=== PATIENT | male | born 1965 | race Caucasian/White ===

== ENCOUNTER 2016-12-10 14:31 | Emergency (ER) | payer BC, OTHER ==
[2016-12-10 15:29] LABS: BASO % 1.3 % (0-6); EOS % 1.7 % (0-6); GRAN % 48.8 % (47-80); HEMATOCRIT 40.4 % (42.0-52.0); HEMOGLOBIN 12.8 gm/dl (14.0-18.0); LYMPH % 38.9 % (16-45); MEAN CELL VOLUME 83.6 fl (81-97); MEAN CORPUSCULAR HEMOGLOBIN 26.5 pg (27-33); MEAN CORPUSCULAR HGB CONC 31.7 g/dl (32-36); MEAN PLATELET VOLUME 10.6 fl (7.4-10.4); MONO % 9.3 % (0-9); PLATELET COUNT 237 K/uL (130-400); RED BLOOD COUNT 4.83 M/uL (4.40-5.70); RED CELL DISTRIBUTION WIDTH 15.3 % (11.5-14.5); WHITE BLOOD COUNT W/O DIFF 4.6 K/uL (4.2-12.2)
--- NOTE | 2016-12-10 16:09 | Emergency Department Record ---
History of Present Illness - General Chief complaint: ENT Stated complaint: EAR PAIN Time Seen by Provider: 12/10/16 14:48 Source: Patient Mode of Arrival: Ambulatory Limitations: No limitations - History of Present Illness Initial comments: pt has had pain in his r ear and thought it was an earache. now it has spread to the mastoid and back of head. pt is having lancing pain in the back and side of head every few minutes. no other symptoms MD complaint: Ear pain Onset/Timin -: Week(s) Location: R ear Severity scale (1-10): 7 Quality: Sharp Consistency: Intermittent Improves with: None Worsens with: Other - Related Data Previous Rx's Medication Instructions Recorded Amoxicillin/Potassium Clav 1 tab PO BID #30 tab 12/10/16 [Augmentin 875-125 Tablet] Hydrocodone/Acetaminophen [Cicero 1 tab PO Q6H PRN #10 tab 12/10/16 5mg/325mg] Allergies Allergy/AdvReac Type Severity Reaction Status Date / Time No Known Drug Allergies Allergy Verified 12/10/16 14:41 Travel Screening - Travel/Exposure Within Last 30 Days Have you traveled within the last 30 days?: No Review of Systems Reviewed: No additional complaints except as noted below Constitutional: Reports: As per HPI. Denies: Chills, Fever, Malaise, Night sweats, Weakness, Weight change Eyes: Reports: As per HPI. Denies: Eye discharge, Eye pain, Photophobia, Vision change ENT: Reports: As per HPI. Denies: Congestion, Dental pain, Ear pain, Epistaxis , Hearing loss, Throat pain Respiratory: Reports: As per HPI. Denies: Cough, Dyspnea, Hemoptysis, Stridor, Wheezes Cardiovascular: Reports: As per HPI. Denies: Arrhythmia, Chest pain, Dyspnea on exertion, Edema, Murmurs, Orthopnea, Palpitations, Paroxysmal nocturnal dyspnea, Rheumatic Fever, Syncope Endocrine: Reports: As per HPI. Denies: Fatigue, Heat or cold intolerance, Polydipsia, Polyuria Gastrointestinal: Reports: As per HPI. Denies: Abdominal pain, Constipation, Diarrhea, Hematemesis, Hematochezia, Melena, Nausea, Vomiting Genitourinary: Reports: As per HPI. Denies: Dysuria, Frequency, Hematuria, Incontinence, Retention, Testicular pain, Testicular mass, Urgency Musculoskeletal: Reports: As per HPI. Denies: Arthralgia, Back pain, Gout, Joint swelling, Myalgia, Neck pain Skin: Reports: As per HPI. Denies: Bruising, Change in color, Change in hair/ nails, Lesions, Pruritus, Rash Neurological: Reports: As per HPI. Denies: Abnormal gait, Confusion, Headache, Numbness, Paresthesias, Seizure, Tingling, Tremors, Vertigo, Weakness Psychiatric: Reports: As per HPI. Denies: Anxiety, Auditory hallucinations, Depression, Homicidal thoughts, Suicidal thoughts, Visual hallucinations Hematological/Lymphatic: Reports: As per HPI. Denies: Anemia, Blood Clots, Easy bleeding, Easy bruising, Swollen glands Past Medical History - SOCIAL HISTORY Smoking Status: Never smoker Alcohol Use: None Drug Use: None - RESPIRATORY Hx Respiratory Disorders: No - CARDIOVASCULAR Hx Cardio Disorders: No - NEURO Hx Neuro Disorders: No - GI Hx GI Disorders: No - Hx Genitourinary Disorders: No - ENDOCRINE Hx Endocrine Disorders: No - MUSCULOSKELETAL Hx Musculoskeletal Disorders: No - PSYCH Hx Psych Problems: No - HEMATOLOGY/ONCOLOGY Hx Hematology/Oncology Disorders: No Family Medical History Any Significant Family History?: No Physical Exam - General General Appearance: Alert, Oriented x3, Cooperative, Mild distress - Head Head exam: Normal inspection - Eye Eye exam: Normal appearance, PERRL, EOMI Pupils: Normal accommodation - ENT ENT exam: Normal exam, Mucous membranes moist, Normal external ear exam, Normal orophraynx, TM's normal bilaterally Ear exam: Normal external inspection. negative: External canal tenderness Nasal Exam: Normal inspection. negative: Discharge, Sinus tenderness Mouth exam: Normal external inspection, Tongue normal Teeth exam: Normal inspection. negative: Dental caries Throat exam: Normal inspection. negative: Tonsillar erythema, Tonsillar exudate - Neck Neck exam: Normal inspection, Full ROM. negative: Tenderness - Respiratory Respiratory exam: Normal lung sounds bilaterally. negative: Respiratory distress - Cardiovascular Cardiovascular Exam: Regular rate, Normal rhythm, Normal heart sounds - GI/Abdominal GI/Abdominal exam: Soft, Normal bowel sounds. negative: Tenderness - Rectal Rectal exam: Deferred - exam: Deferred - Extremities Extremities exam: Normal inspection, Full ROM, Normal capillary refill. negative: Tenderness - Back Back exam: Reports: Normal inspection, Full ROM. Denies: Muscle spasm, Rash noted, Tenderness - Neurological Neurological exam: Alert, CN II-XII intact, Normal gait, Oriented X3 - Psychiatric Psychiatric exam: Normal affect, Normal mood - Skin Skin exam: Dry, Intact, Normal color, Warm Course Vital Signs 12/10/16 14:35 Temperature 97.6 F Pulse Rate 57 L Respiratory 20 Rate Blood Pressure 128/73 Pulse Ox 100 Medical Decision Making - Management Options MDM Management: Additional Work-up Planned (e.g. ADM/Transfer/OP Study) - Data Complexity MDM Data: Labs Ordered and/or Reviewed, X-Ray Ordered and/or Reviewed - Lab Data Result diagrams: 12/10/16 15:16 Lab Results 12/10/16 Range/Units 15:16 WBC 4.6 (4.2-12.2) K/uL RBC 4.83 (4.40-5.70) M/uL Hgb 12.8 L (14.0-18.0) gm/dl Hct 40.4 L (42.0-52.0) % MCV 83.6 (81-97) fl MCH 26.5 L (27-33) pg MCHC 31.7 L (32-36) g/dl RDW 15.3 H (11.5-14.5) % Plt Count 237 (130-400) K/uL MPV 10.6 H (7.4-10.4) fl Gran % 48.8 (47-80) % Lymphocytes % 38.9 (16-45) % Monocytes % 9.3 H (0-9) % Eosinophils % 1.7 (0-6) % Basophils % 1.3 (0-6) % - Radiology Data Radiology results: Report reviewed, Image reviewed Disposition Disposition: Discharge Clinical Impression: Trigeminal neuralgia of right side of face Sinusitis Qualifiers: Sinusitis location: maxillary Chronicity: acute Recurrence: not specified as recurrent Qualified Code(s): J01.00 - Acute maxillary sinusitis, unspecified Disposition: Home, Self-Care Condition: (1) Good Instructions: Sinusitis (ED), Trigeminal Neuralgia (ED) Additional Instructions: follow up with family doctor. return sooner if worse. Prescriptions: Amoxicillin/Potassium Clav [Augmentin 875-125 Tablet] 1 tab PO BID #30 tab Hydrocodone/Acetaminophen [Cicero 5mg/325mg] 1 tab PO Q6H PRN #10 tab PRN Reason: Pain - General Forms: Patient Portal Access
--- NOTE | 2016-12-12 16:24 | CT SCAN REPORT ---
EXAM: CT SCAN HEAD WO CONTRAST HISTORY: SHARP ACUTE OCCIPITAL HEADACHE. NO INJURY. TECHNIQUE: Contiguous axial images from the cerebral convexities through the foramen magnum were taken without contrast. COMPARISON: None. FINDINGS: Brain volume is normal. No acute intracranial hemorrhage, mass effect , or midline shift. No CT evidence of acute infarct. Ventricles, basal cisterns , and sulci are within normal limits. Osseous structures, soft tissues, and paranasal sinuses are unremarkable. IMPRESSION: NO ACUTE INTRACRANIAL PROCESS. JOB NUMBER: [id number] MTDD
--- NOTE | 2016-12-12 16:39 | CT SCAN REPORT ---
EXAM: CT SCAN IAC WO CONTRAST HISTORY: SHARP ACUTE OCCIPITAL HEADACHE. NO INJURY. TECHNIQUE: Contiguous axial images from the level of the suprasellar cistern to the C1/2 articulation were obtained without contrast. Sagittal and coronal two-dimensional reformatted images were obtained for better anatomic delineation. COMPARISON: Head CT same day. FINDINGS: The mastoid air cells are well-aerated with no fluid or coalescence of air cells. The internal auditory canals appear normal with no opacity. Inner ear structures are symmetric. No acute fractures. Mild mucosal thickening in the left maxillary sinus. Minimal mucosal thickening of the right maxillary sinus. IMPRESSION: 1. MILD MUCOSAL THICKENING OF THE MAXILLARY SINUSES COULD REFLECT CHRONIC SINUSITIS. 2. OTHERWISE, UNREMARKABLE CT OF THE TEMPORAL BONES. JOB NUMBER: [id number] MTDD
== END 2016-12-10 17:59 | disposition home or self-care (01) ==
LOC: ER 14:31
DX: G50.0 Trigeminal neuralgia (principal); J01.00 Acute maxillary sinusitis, unspecified; R51 Headache
CPT/HCPCS: 70450; 70480; 85025; 99283; 99284